=== PATIENT | female | born 1995 | race Caucasian/White ===

== ENCOUNTER 2017-01-10 16:32 | Emergency (ER) | payer OTHER ==
[2017-01-10 17:05] VITALS: BMI 21.0
[2017-01-10] MEDS ORDERED: METOCLOPRAMIDE HCL INJECTION 10 MG/2 ML VIAL IVPB ONE (17:06)
--- NOTE | 2017-01-10 17:08 | PDOC ---
Rapid Medical Evaluation Chief Complaint: Nausea/Vomiting Time Seen by Provider: 01/10/17 17:03 Medical Evaluation: Allergies Allergy/AdvReac Type Severity Reaction Status Date / Time No Known Allergies Allergy Verified 01/10/17 17:02 Vital Signs Temp Pulse Resp BP Pulse Ox 98.1 F 124 H 16 118/74 100 01/10/17 17:03 01/10/17 17:03 01/10/17 17:03 01/10/17 17:03 01/10/17 17:03 01/10/17 17:07 I have performed a brief in-person evaluation of this patient. The patient presents with a chief complaint of: ~7 weeks w/ hyperemesis x 1 week. Also reports lower abd pain, no vag bleed or dysurai. No care as of yet Pertinent physical exam findings: Tachycardiac, otherwise stable w/ no sig ttp to abd on exam I have ordered the following:cbc/chem/beta/ua/US/IVF/reglan The patient will proceed to the ED for further evaluation.
[2017-01-10] MEDS ORDERED: DEXTROSE 5%-0.45% SALINE 1,000 ML IV SCH (17:15)
[2017-01-10 17:26] LABS: URINE APPEARANCE SLCLOUDY; URINE BILIRUBIN NEGATIVE (NEGATIVE); URINE BLOOD NEGATIVE (NEGATIVE); URINE COLOR YELLOW; URINE GLUCOSE (UA) NEGATIVE (NEGATIVE); URINE KETONE 2+ (NEGATIVE); URINE NITRITE POSITIVE (NEGATIVE); URINE UROBILINOGEN 2.0 E.U/dl E.U./dl (0.2-1.0)
[2017-01-10 17:26] LABS: BASOPHIL 0.4 % (0-2.0); EOSINOPHIL 0.1 % (0-4.5); MCH 24.7 pg (25.7-33.7); MCHC 32.1 g/dl (32.0-36.0); MEAN PLT VOLUME 10.4 fl (7.5-11.1); NEUTROPHILS 66.8 % (42.8-82.8); PLATELET COUNT 269 K/MM3 (134-434); RDW 19.7 % (11.6-15.6); WHITE BLOOD COUNT 7.6 K/mm3 (4.0-10.0)
[2017-01-10 17:55] LABS: URINE LEUK ESTERASE 2+ (NEGATIVE); URINE PROTEIN 2+ (NEGATIVE)
[2017-01-10 18:09] LABS: URINE BACTERIA FEW /hpf (NONE SEEN); URINE MUCUS MANY; URINE RBC 8 /hpf (0-3); URINE WBC 191 /hpf (3-5)
[2017-01-10 18:17] LABS: ALBUMIN 4.3 g/dl (3.4-5.0); ALK PHOS 90 U/L (45-117); ANION GAP 13 (8-16); BILIRUBIN,TOTAL 0.6 mg/dL (0.2-1.0); CALCIUM 9.8 mg/dL (8.5-10.1); CO2 23 mmol/L (21-32); CREATININE 0.5 mg/dL (0.55-1.02); GLUCOSE,RANDOM 79 mg/dL (74-106); SGOT/AST 17 U/L (15-37); SGPT/ALT 18 U/L (12-78); TOT PROT 8.8 g/dl (6.4-8.2)
[2017-01-10] MEDS ORDERED: CEFAZOLIN 1 GM in DEXTROSE 5%-WATER - 50 ML IVPB ONE (19:47)
--- NOTE | 2017-01-10 19:50 | PDOC ---
History of Present Illness <CatarinoNelatatyana Bauer - Last Filed: 01/10/17 23:00> - History of Present Illness Initial Comments: 01/11/17 00:19 Patient is a 21 year old female (7 weeks) with no significant medical hx who is presenting to the ED with four days of hyperemesis. The patient complains of four days of nausea, vomiting and epigastric pain. Today she had four episodes of vomiting and states that she vomited everything she ate today. The patient is concerned because she never had morning sickness with past pregnancies. Denies any vaginal bleeding, vaginal discharge, fever, chills, diarrhea, or urinary complaints. <Delfina Ellison - Last Filed: 01/11/17 00:24> - General Chief Complaint: Nausea/Vomiting Stated Complaint: 7 WKS PREG NAUSEA/VOMITING Time Seen by Provider: 01/10/17 17:03 Past History - Past Medical History Asthma: No Cancer: No Cardiac Disorders: No Diabetes: No HTN: No Seizures: No Thyroid Disease: No Other medical history: NONE - Reproductive History (#): 3 Para: 2 Therapeutic (s) & number: No Spontaneous : 0 - Psycho/Social/Smoking Cessation Hx Anxiety: No Suicidal Ideation: No Smoking History: Never smoked Have you smoked in the past 12 months: No Information on smoking cessation initiated: No Hx Alcohol Use: No Drug/Substance Use Hx: No Substance Use Type: None Hx Substance Use Treatment: No <Nela Toribio - Last Filed: 01/10/17 23:00> <Delfina Ellison - Last Filed: 01/11/17 00:24> - Past Medical History Allergies/Adverse Reactions: Allergies Allergy/AdvReac Type Severity Reaction Status Date / Time No Known Allergies Allergy Verified 01/10/17 20:09 Home Medications: Ambulatory Orders Nitrofurantoin Monohyd/M-Cryst [Macrobid -] 100 mg PO BID #14 capsule 01/10/17 Ondansetron [Zofran Odt -] 4 mg SL BID PRN #14 od.tablet 01/10/17 Review of Systems - Review of Systems Comments:: 01/11/17 00:22 CONSTITUTIONAL: Absent: fever, chills, diaphoresis, generalized weakness, malaise, loss of appetite HEENT: Absent: rhinorrhea, nasal congestion, throat pain, throat swelling, difficulty swallowing, mouth swelling, ear pain, eye pain, visual changes CARDIOVASCULAR: Absent: chest pain, syncope, palpitations, irregular heart rate, lightheadedness , peripheral edema RESPIRATORY: Absent: cough, shortness of breath, dyspnea with exertion, orthopnea, wheezing, stridor, hemoptysis GASTROINTESTINAL: Present: epigastric pain, nausea, vomiting Absent: abdominal distension, diarrhea, constipation, melena, hematochezia GENITOURINARY: Absent: dysuria, frequency, urgency, hesitancy, hematuria, flank pain, genital pain MUSCULOSKELETAL: Absent: myalgia, arthralgia, joint swelling SKIN: Absent: rash, itching, pallor HEMATOLOGIC/IMMUNOLOGIC: Absent: easy bleeding, easy bruising, lymphadenopathy, frequent infections ENDOCRINE: Absent: unexplained weight gain, unexplained weight loss, heat intolerance, cold intolerance NEUROLOGIC: Absent: headache, focal weakness or paresthesia, dizziness, unsteady gait, seizure, mental status changes, bladder or bowel incontinence. PSYCHIATRIC: Absent: anxiety, depression, suicidal or homicidal ideation, hallucinations <Delfina Ellison - Last Filed: 01/11/17 00:24> *Physical Exam - Vital Signs Last Vital Signs Temp Pulse Resp BP Pulse Ox 98.1 F 124 H 16 118/74 100 01/10/17 17:03 01/10/17 17:03 01/10/17 17:03 01/10/17 17:03 01/10/17 17:03 <Nela Toribio - Last Filed: 01/10/17 23:00> - Vital Signs Last Vital Signs Temp Pulse Resp BP Pulse Ox 98.1 F 124 H 16 118/74 100 01/10/17 17:03 01/10/17 17:03 01/10/17 17:03 01/10/17 17:03 01/10/17 19:25 - Physical Exam Comments: 01/11/17 00:23 GENERAL: Well developed, well nourished. Awake and alert. No acute distress. HEENT: Normocephalic, atraumatic. PERRLA, EOMI. No conjunctival pallor. Sclera are non- icteric. Moist mucous membranes. Oropharynx is clear. NECK: Supple. Full ROM. No JVD. Carotid pulses 2+ and symmetric, without bruits. No thyromegaly. No lymphadenopathy. CARDIOVASCULAR: Regular rate and rhythm. No murmurs, rubs, or gallops. Distal pulses are 2+ and symmetric. PULMONARY: No evidence of respiratory distress. Lungs clear to auscultation bilaterally. No wheezing, rales or rhonchi. ABDOMINAL: Soft. Epigastric discomfort. Non-distended. No rebound or guarding. No organomegaly. Normoactive bowel sounds. MUSCULOSKELETAL: Normal range of motion at all joints. No bony deformities or tenderness. No CVA tenderness. EXTREMITIES: No cyanosis. No clubbing. No edema. No calf tenderness. SKIN: Warm and dry. Normal capillary refill. No rashes. No jaundice. NEUROLOGICAL: Alert, awake, appropriate. Cranial nerves 2-12 intact. Normal speech. Gait is normal without ataxia. PSYCHIATRIC: Cooperative. Good eye contact. Appropriate mood and affect. <Delfina Ellison - Last Filed: 01/11/17 00:24> ED Treatment Course - LABORATORY CBC & Chemistry Diagram: 01/10/17 17:15 01/10/17 17:15 - ADDITIONAL ORDERS Additional order review: Laboratory Results 01/10/17 01/10/17 01/10/17 17:15 17:15 17:04 Sodium 137 Potassium 3.4 L Chloride 101 Carbon Dioxide 23 Anion Gap 13 BUN 8 D Creatinine 0.5 L Creat Clearance w eGFR > 60 Random Glucose 79 D Calcium 9.8 Total Bilirubin 0.6 D AST 17 D ALT 18 D Alkaline Phosphatase 90 Total Protein 8.8 H Albumin 4.3 D Beta HCG, Quant 34460.4 Urine Color Yellow Urine Appearance Slcloudy Urine pH 6.0 Urine Protein 2+ H Urine Glucose (UA) Negative Urine Ketones 2+ H Urine Blood Negative Urine Nitrite Positive Urine Bilirubin Negative Urine Urobilinogen 2.0 e.u/dl H Ur Leukocyte Esterase 2+ H Urine RBC 8 Urine WBC 191 Ur Epithelial Cells Rare Urine Bacteria Few Urine Mucus Many 01/10/17 17:15 RBC 5.11 D MCV 77.0 L MCHC 32.1 RDW 19.7 H MPV 10.4 D Neutrophils % 66.8 Lymphocytes % 24.8 Monocytes % 7.9 Eosinophils % 0.1 D Basophils % 0.4 <Nela Toribio - Last Filed: 01/10/17 23:00> - LABORATORY CBC & Chemistry Diagram: 01/10/17 17:15 01/10/17 17:15 - ADDITIONAL ORDERS Additional order review: Laboratory Results 01/10/17 01/10/17 01/10/17 17:15 17:15 17:15 Sodium 137 Potassium 3.4 L Chloride 101 Carbon Dioxide 23 Anion Gap 13 BUN 8 D Creatinine 0.5 L Creat Clearance w eGFR > 60 Random Glucose 79 D Calcium 9.8 Total Bilirubin 0.6 D AST 17 D ALT 18 D Alkaline Phosphatase 90 Total Protein 8.8 H Albumin 4.3 D Beta HCG, Quant 37408.4 Urine Color Urine Appearance Urine pH Ur Specific Theodore Urine Protein Urine Glucose (UA) Urine Ketones Urine Blood Urine Nitrite Urine Bilirubin Urine Urobilinogen Ur Leukocyte Esterase Urine RBC Urine WBC Ur Epithelial Cells Urine Bacteria Urine Mucus Blood Type B POSITIVE Antibody Screen Negative 01/10/17 17:04 Sodium Potassium Chloride Carbon Dioxide Anion Gap BUN Creatinine Creat Clearance w eGFR Random Glucose Calcium Total Bilirubin AST ALT Alkaline Phosphatase Total Protein Albumin Beta HCG, Quant Urine Color Yellow Urine Appearance Slcloudy Urine pH 6.0 Ur Specific Theodore >= 1.030 H Urine Protein 2+ H Urine Glucose (UA) Negative Urine Ketones 2+ H Urine Blood Negative Urine Nitrite Positive Urine Bilirubin Negative Urine Urobilinogen 2.0 e.u/dl H Ur Leukocyte Esterase 2+ H Urine RBC 8 Urine WBC 191 Ur Epithelial Cells Rare Urine Bacteria Few Urine Mucus Many Blood Type Antibody Screen 01/10/17 17:15 RBC 5.11 D MCV 77.0 L MCHC 32.1 RDW 19.7 H MPV 10.4 D Neutrophils % 66.8 Lymphocytes % 24.8 Monocytes % 7.9 Eosinophils % 0.1 D Basophils % 0.4 - RADIOLOGY Radiograph Interpretation: 01/10/17 22:33 Transvaginal US Impression: Single live intrauterine with estimated gestational age of 6 weeks 5 days. Likely hemorrhagic corpus luteum cyst in the right ovary measuring 2.5 x 1.9 cm. Follow-up is needed. Reported By: Nina Sewell MD - Medications Given in the ED: ED Medications Discontinued Medications Generic Name Dose Route Start Last Admin Trade Name Freq PRN Reason Stop Dose Admin Cefazolin Sodium 1 gm/ 50 mls @ 100 mls/hr 01/10/17 19:47 01/10/17 20:22 Dextrose IVPB 01/10/17 20:16 100 mls/hr ONCE ONE Administration Metoclopramide HCl 10 mg 01/10/17 17:06 01/10/17 20:08 Reglan Injection - IVPB 01/10/17 17:07 10 mg ONCE ONE Administration <Delfina Ellison - Last Filed: 01/11/17 00:24> *DC/Admit/Observation/Transfer <Nela Toribio - Last Filed: 01/10/17 23:00> - Attestations Scribe Attestion: 01/11/17 00:23 Documentation prepared by Delfina Ellison, acting as medical staff specialist for Nela Toribio MD. <Delfina Ellison - Last Filed: 01/11/17 00:24> Diagnosis at time of Disposition: Hyperemesis gravidarum Urinary tract infection Qualifiers: Urinary tract infection type: site unspecified Hematuria presence: without hematuria Qualified Code(s): N39.0 - Urinary tract infection, site not specified - Discharge Dispostion Disposition: HOME Condition at time of disposition: Stable - Prescriptions Prescriptions: Nitrofurantoin Monohyd/M-Cryst [Macrobid -] 100 mg PO BID #14 capsule Ondansetron [Zofran Odt -] 4 mg SL BID PRN #14 od.tablet PRN Reason: Nausea And/Or Vomiting - Referrals Referrals: Yumi Llanos MD [Primary Care Provider] - - Patient Instructions Printed Discharge Instructions: DI for Hyperemesis Gravidarum, DI for Urinary Tract Infection (UTI) Additional Instructions: -please take antibiotics for your UTI -followup with your insole filler
[2017-01-10] MEDS ORDERED: CEFAZOLIN (PRE-DOCKED) 50 ML IVPB ONE (19:54)
[2017-01-10] MEDS ORDERED: METOCLOPRAMIDE HCL INJECTION 10 MG/2 ML VIAL ONE (19:54)
[2017-01-10 23:41] VITALS: BP 120/76; PULSE 90; TEMP 98
== END 2017-01-10 23:41 | disposition home or self-care (01) ==
LOC: JER 16:32
PROC: 3E0337Z Introduction of Electrolytic and Water Balance Substance into Peripheral Vein, Percutaneous Approach (ICD-10-PCS; principal; 2017-01-10)
PROC: 3E03329 Introduction of Other Anti-infective into Peripheral Vein, Percutaneous Approach (ICD-10-PCS; 2017-01-10)
PROC: 3E033GC Introduction of Other Therapeutic Substance into Peripheral Vein, Percutaneous Approach (ICD-10-PCS; 2017-01-10)
DX: O21.0 Mild hyperemesis gravidarum (principal); O23.31 Infections of other parts of urinary tract in pregnancy, first trimester; O34.81 Maternal care for other abnormalities of pelvic organs, first trimester; N83.11 Corpus luteum cyst of right ovary; Z3A.01 Less than 8 weeks gestation of pregnancy
CPT/HCPCS: 36415; 76817-TC; 80053; 81003; 81015; 84702; 85025; 86850; 86900; 86901; 96361; 96365; 96375; 99282-25

== ENCOUNTER 2017-03-24 15:54 | Emergency (ER) | payer OTHER ==
[2017-03-24 16:00] VITALS: BMI 21.0
--- NOTE | 2017-03-24 16:23 | PDOC ---
History of Present Illness - General Chief Complaint: Pain Stated Complaint: PALPITATIONS, HEADACHE, VOMITING Time Seen by Provider: 03/24/17 16:11 - History of Present Illness Initial Comments: 03/24/17 17:40 Patient is a 21 y.o. female female who presents to our ED c/o chest pain, headache and anxiety. Patient notes she has had substernal "burning" and "pressure" like chest pain that has been ongoing for 2-3 days. Patient states the chest pain is constant, 10/10 and exacerbated by laying down. Patient also notes an associated headache, mostly frontal, that started at the same time. Patient does report an intermittent febrile episode yesterday (03/23) for which she took Tylenol however patient states she vomited immediately after taking the Tylenol and has been not tolerating PO intake since that time. Patient denies any shortness of breath, diaphoresis, lightheadness, recent travel/ prolonged sitting or calf pain. Past History - Past Medical History Allergies/Adverse Reactions: Allergies Allergy/AdvReac Type Severity Reaction Status Date / Time No Known Allergies Allergy Verified 03/24/17 16:00 Home Medications: Ambulatory Orders Cephalexin Monohydrate [Keflex -] 500 mg PO Q6H #28 capsule 03/24/17 Asthma: No Cancer: No Cardiac Disorders: No Diabetes: No HTN: No Seizures: No Thyroid Disease: No Other medical history: migrane - Reproductive History (#): 3 Para: 2 Therapeutic (s) & number: No Spontaneous : 0 - Psycho/Social/Smoking Cessation Hx Anxiety: No Suicidal Ideation: No Smoking History: Never smoked Have you smoked in the past 12 months: No Information on smoking cessation initiated: No Hx Alcohol Use: No Drug/Substance Use Hx: No Substance Use Type: None Hx Substance Use Treatment: No Review of Systems - Review of Systems Constitutional: Yes: Fever Cardiac (ROS): Yes: Chest Pain, Palpitations, Chest Tightness ABD/GI: Yes: Vomiting Neurological: Yes: Headache Psychiatric: Yes: Anxiety *Physical Exam - Vital Signs Last Vital Signs Temp Pulse Resp BP Pulse Ox 98.2 F 152 H 19 114/68 100 03/24/17 15:58 03/24/17 15:58 03/24/17 15:58 03/24/17 15:58 03/24/17 15:58 - Physical Exam General Appearance: Yes: Nourished, Appropriately Dressed HEENT: positive: EOMI, PAUL Neck: positive: Trachea midline, Supple Respiratory/Chest: positive: Lungs Clear, Normal Breath Sounds Cardiovascular: positive: Regular Rhythm, S1, S2, Tachycardia Gastrointestinal/Abdominal: positive: Soft Extremity: positive: Delayed Capillary Refill Integumentary: positive: Normal Color, Dry, Warm Neurologic: positive: manager care II-XII NML intact, Fully Oriented, Alert ED Treatment Course - LABORATORY CBC & Chemistry Diagram: 03/24/17 16:30 03/24/17 16:00 Medical Decision Making - Medical Decision Making Patient is a 21 y.o. female at a self-reported 15 weeks gestation who presents to our ED today c/o chest pain and associated headache, vomiting and intermittent fevers. Initial differential diagnosis includes pericarditis vs. ACS vs. GERD vs. dehydration. PLAN: 1. EKG 2. Troponin, CBC, BMP 3. I L IV NS 4. IV Tylenol Patient's EKG showed Sinus Tachycardia with no diffuse ST elevation/WI depression making pericarditis less likely. Troponin (-) x1. Patient's tachycardia improved with 1 L IV NS x2 to low 100's --> 90's. UA shows (+) leukocyte esterase and (+) nitrite. As per EMR patient evaluated in 12/2016 for UTI treated with Nitrofurantoin. Patient given Cephalexin in ED and outpatient prescription for 500 mg BID x 7 days. Beside U/S showed IUP with FHR @ 164 BPM, formal transabdominal U/S pending at time to signout to Dr. Miguel. *DC/Admit/Observation/Transfer Diagnosis at time of Disposition: Hyperemesis gravidarum, Reflux esophagitis - Discharge Dispostion Disposition: HOME Condition at time of disposition: Improved - Prescriptions Prescriptions: Cephalexin Monohydrate [Keflex -] 500 mg PO Q6H #28 capsule - Patient Instructions Printed Discharge Instructions: DI for Hyperemesis Gravidarum, DI for -- Discomforts and Remedies Additional Instructions: Please return to ED if you have vaginal bleeding, severe abdominal pain, worsening chest pain, shortness of breath, or worsening of current symptoms. Please follow up with your [facility] physician in the next 2-4 days. Continue antibiotic as prescribed.
[2017-03-24] MEDS ORDERED: SODIUM CHLORIDE 0.9% 1000 ML INFUS.BAG IV ONE (16:26)
[2017-03-24 16:36] LABS: BASOPHIL 0.2 % (0-2.0); MCHC 32.6 g/dl (32.0-36.0); MEAN CELL VOLUME 76.7 fl (80-96); MEAN PLT VOLUME 9.8 fl (7.5-11.1); NEUTROPHILS 88.9 % (42.8-82.8); PLATELET COUNT 277 K/MM3 (134-434); RDW 16.4 % (11.6-15.6); WHITE BLOOD COUNT 19.6 K/mm3 (4.0-10.0)
[2017-03-24] MEDS ORDERED: ACETAMINOPHEN INJECTION 100 ML IVPB ONE (16:37)
[2017-03-24] MEDS ORDERED: ACETAMINOPHEN 1000 MG/100 ML VIAL (NON FORMULARY) IVPB ONE (16:37)
[2017-03-24] MEDS ORDERED: MAG HYDROX/AL HYDROX/SIMETH 355 ML ORAL.SUSP PO ONE (16:57)
[2017-03-24] MEDS ORDERED: ONDANSETRON 4 MG/2 ML VIAL IVPB ONE (16:57)
[2017-03-24] MEDS ORDERED: METOCLOPRAMIDE HCL INJECTION 10 MG/2 ML VIAL IVPB ONE (16:57)
--- NOTE | 2017-03-24 17:00 | PDOC ---
Attending Attestation - Resident Resident Name: Evangelina Ivan - ED Attending Attestation I have performed the following: I have examined & evaluated the patient, The case was reviewed & discussed with the resident, I agree w/resident's findings & plan, Exceptions are as noted - HPI HPI: 03/24/17 17:00 21 F with no PMH, estimated 13 weeks , presents to ER with N/V and chest pain. Pt states that she began to feel ill 2 days ago, with a migraine headache. She states that she began to feel extremely nauseous and vomited several times today. She denies abdominal pain. Endorses subjective fevers. Pt also complains of midsternal burning chest pain. Denies SOB. Denies leg swelling. - Physicial Exam PE: 03/24/17 17:13 "GENERAL: Awake, alert, and fully oriented, in no acute distress HEAD: No signs of trauma EYES: PERRLA, EOMI, sclera anicteric, conjunctiva clear ENT: Auricles normal inspection, hearing grossly normal, nares patent, oropharynx clear without exudates. Moist mucosa NECK: Normal ROM, supple, no lymphadenopathy, JVD, or masses LUNGS: Breath sounds equal, clear to auscultation bilaterally. No wheezes, and no crackles HEART: Regular rate and rhythm, normal S1 and S2, no murmurs, rubs or gallops ABDOMEN: Soft, gravid, nontender, normoactive bowel sounds. No guarding, no rebound. No masses EXTREMITIES: Normal range of motion, no edema. No clubbing or cyanosis. No cords, erythema, or tenderness NEUROLOGICAL: Cranial nerves II through XII grossly intact. Normal speech, normal gait SKIN: Warm, Dry, normal turgor, no rashes or lesions noted. " - Medical Decision Making 03/24/17 17:33 21 F @ approx 13 weeks presents with N+V and chest pain. Likely hyperemesis gravidarum. Pt with midsternal burning, likely reflux esophagitis from vomiting. EKG with no ischemic changes, no signs of pericarditis. - Labs, trop - IVF, reglan, tylenol - OB US - Reassess 03/24/17 18:07 Pt reassessed s/p 2L crystalloid, GI cocktail, tylenol. Reports that her pain has subsided significantly. HR improved to 100s. Heart Score/ECG Review - History History: Slightly suspicious - Electrocardiogram EKG: Normal - Age Age: </= 45 - Risk Factors Based on the list above the patient has:: No risk factors known - ECG Impressions Comment:: 03/24/17 17:13 Sinus tachycardia rate 147, no ANTONIO/STDs, no TWIs, intervals wnl
[2017-03-24 17:05] LABS: ALBUMIN 2.7 g/dl (3.4-5.0); ANION GAP 13 (8-16); BILIRUBIN,TOTAL 0.3 mg/dL (0.2-1.0); CALCIUM 9.7 mg/dL (8.5-10.1); CO2 22 mmol/L (21-32); CREATININE 0.4 mg/dL (0.55-1.02); GLUCOSE,RANDOM 131 mg/dL (74-106); SGOT/AST 14 U/L (15-37); SGPT/ALT 11 U/L (12-78)
[2017-03-24 17:06] LABS: CPK 26 IU/L (26-192)
[2017-03-24 17:07] LABS: ALK PHOS 109 U/L (45-117); TOT PROT 7.5 g/dl (6.4-8.2)
[2017-03-24 17:07] LABS: TROPONIN I < 0.02 ng/ml (0.00-0.05)
[2017-03-24] MEDS ORDERED: ONDANSETRON 4 MG/2 ML VIAL ONE (17:24)
[2017-03-24] MEDS ORDERED: MAG HYDROX/AL HYDROX/SIMETH 30 ML UNIT-DOSE CUP ONE (17:24)
[2017-03-24] MEDS ORDERED: METOCLOPRAMIDE HCL INJECTION 10 MG/2 ML VIAL ONE (17:24)
[2017-03-24] MEDS ORDERED: DEXTROSE 5%-NORMAL SALINE 1,000 ML IV ONE (17:32)
[2017-03-24 18:03] VITALS: TEMP 98.5
[2017-03-24 18:34] LABS: URINE APPEARANCE CLOUDY; URINE BILIRUBIN NEGATIVE (NEGATIVE); URINE BLOOD 1+ (NEGATIVE); URINE COLOR AMBER; URINE GLUCOSE (UA) 3+ (NEGATIVE); URINE KETONE 2+ (NEGATIVE); URINE LEUK ESTERASE 3+ (NEGATIVE); URINE NITRITE NEGATIVE (NEGATIVE); URINE PROTEIN 1+ (NEGATIVE); URINE UROBILINOGEN NEGATIVE mg/dL (0.2-1.0)
[2017-03-24 18:38] LABS: URINE BACTERIA RARE /hpf (NONE SEEN); URINE MUCUS MODERATE; URINE RBC 29 /hpf (0-3); URINE WBC 1369 /hpf (3-5); YEAST FEW
[2017-03-24] MEDS ORDERED: SODIUM CHLORIDE 1,000 ML IV STA (18:52)
[2017-03-24] MEDS ORDERED: CEPHALEXIN MONOHYDRATE 500 MG CAPSULE (UD) PO ONE (18:53)
[2017-03-24] MEDS ORDERED: CEPHALEXIN MONOHYDRATE 250 MG CAPSULE (FP) ONE (19:05)
--- NOTE | 2017-03-24 19:34 | PDOC ---
*Physical Exam - Vital Signs Last Vital Signs Temp Pulse Resp BP Pulse Ox 98.5 F 100 H 18 99/62 97 03/24/17 17:40 03/24/17 18:29 03/24/17 18:29 03/24/17 18:29 03/24/17 18:29 - Physical Exam Comments: 03/24/17 19:34 GENERAL: Awake, alert, and fully oriented, in no acute distress HEAD: No signs of trauma, normocephalic, atraumatic EYES: PERRLA, EOMI, sclera anicteric, conjunctiva clear ENT: Auricles normal inspection, hearing grossly normal, nares patent, oropharynx clear without exudates. Moist mucosa NECK: Normal ROM, supple, no lymphadenopathy, JVD, or masses LUNGS: No distress, speaks full sentences, clear to auscultation bilaterally HEART: Regular rate and rhythm, normal S1 and S2, no murmurs, rubs or gallops, peripheral pulses normal and equal bilaterally. ABDOMEN: Soft, nontender, normoactive bowel sounds. No guarding, no rebound. No masses SKIN: Warm, Dry, normal turgor, no rashes or lesions noted. ED Treatment Course - LABORATORY CBC & Chemistry Diagram: 03/24/17 16:30 03/24/17 16:00 - ADDITIONAL ORDERS Additional order review: Laboratory Results 03/24/17 03/24/17 03/24/17 18:29 18:25 16:30 Sodium Cancelled Potassium Cancelled Chloride Cancelled Carbon Dioxide Cancelled Anion Gap Cancelled BUN Cancelled Creatinine Cancelled Creat Clearance w eGFR Random Glucose Cancelled Calcium Cancelled Total Bilirubin AST ALT Alkaline Phosphatase Creatine Kinase 26 Troponin I < 0.02 Total Protein Albumin Lipase Urine Color Tegan Urine Appearance Cloudy Urine pH 6.0 Urine Protein 1+ H Urine Glucose (UA) 3+ H Urine Ketones 2+ H Urine Blood 1+ H Urine Nitrite Negative Urine Bilirubin Negative Urine Urobilinogen Negative Ur Leukocyte Esterase 3+ H Urine RBC 29 Urine WBC 1369 Ur Epithelial Cells Rare Urine Bacteria Rare Urine Mucus Moderate Urine Yeast Few Urine HCG, Qual Positive 03/24/17 16:00 Sodium 134 L Potassium 3.6 Chloride 99 Carbon Dioxide 22 Anion Gap 13 BUN 6 L D Creatinine 0.4 L Creat Clearance w eGFR > 60 Random Glucose 131 H D Calcium 9.7 Total Bilirubin 0.3 D AST 14 L ALT 11 L D Alkaline Phosphatase 109 D Creatine Kinase Troponin I Total Protein 7.5 Albumin 2.7 L D Lipase 123 Urine Color Urine Appearance Urine pH Urine Protein Urine Glucose (UA) Urine Ketones Urine Blood Urine Nitrite Urine Bilirubin Urine Urobilinogen Ur Leukocyte Esterase Urine RBC Urine WBC Ur Epithelial Cells Urine Bacteria Urine Mucus Urine Yeast Urine HCG, Qual 03/24/17 16:30 RBC 4.16 MCV 76.7 L MCHC 32.6 RDW 16.4 H D MPV 9.8 Neutrophils % 88.9 H D Lymphocytes % 6.0 L D Monocytes % 4.9 Eosinophils % 0.0 D Basophils % 0.2 - Medications Given in the ED: ED Medications Discontinued Medications Generic Name Dose Route Start Last Admin Trade Name Freq PRN Reason Stop Dose Admin Acetaminophen 1,000 mg 03/24/17 16:37 03/24/17 16:46 Ofirmev Injection - IVPB 03/24/17 16:38 1,000 mg ONCE ONE Administration Al Hydroxide/Mg Hydroxide 30 ml 03/24/17 16:57 03/24/17 17:36 Mylanta Suspension - PO 03/24/17 16:58 30 ml ONCE ONE Administration Cephalexin HCl 500 mg 03/24/17 18:53 03/24/17 19:11 Keflex - PO 03/24/17 18:54 500 mg ONCE ONE Administration Dextrose/Sodium Chloride 1,000 mls @ 1,000 mls/hr 03/24/17 17:32 03/24/17 17:36 D5-Ns - IV 03/24/17 18:31 1,000 mls/hr ONCE ONE Administration Metoclopramide HCl 10 mg 03/24/17 16:57 03/24/17 17:36 Reglan Injection - IVPB 03/24/17 16:58 10 mg ONCE ONE Administration Ondansetron HCl 4 mg 03/24/17 16:57 03/24/17 17:36 Zofran Injection IVPB 03/24/17 16:58 4 mg ONCE ONE Administration Sodium Chloride 1,000 ml 03/24/17 16:26 03/24/17 16:32 Normal Saline - IV 03/24/17 16:27 1,000 ml ONCE ONE Administration Medical Decision Making - Medical Decision Making 03/24/17 19:16 21 yo at 10 weeks presents with palpitations and anxiety. Arrived tachycardic HR 170's. Complains of biliary emesis and substernal burning. Denies chest pain, SOB, hemoptysis, calf tenderness/swelling, or any other associated symptoms. No h/o DVT/PE DDx: Hyperemesis gravidarum, reflux esophagitis ED Course: UA: + Nitrites and leuk esterase EKG: Unremarkable Recently on Nitrofuratoin in December for UTI Admin 2 L NS 03/24/17 19:35 WBC: 19.6 03/24/17 20:37 Cephalexin 500 mg 03/24/17 20:43 Transabdominal U/S: No gross pathology. Single viable uterine gestation. Stable discharge *DC/Admit/Observation/Transfer Diagnosis at time of Disposition: Hyperemesis gravidarum, Reflux esophagitis - Discharge Dispostion Disposition: HOME Condition at time of disposition: Improved Admit: No - Prescriptions Prescriptions: Cephalexin Monohydrate [Keflex -] 500 mg PO Q6H #28 capsule - Patient Instructions Printed Discharge Instructions: DI for Hyperemesis Gravidarum, DI for -- Discomforts and Remedies Additional Instructions: Please return to ED if you have vaginal bleeding, severe abdominal pain, worsening chest pain, shortness of breath, or worsening of current symptoms. Please follow up with your [facility] physician in the next 2-4 days. Continue antibiotic as prescribed.
[2017-03-24 20:29] VITALS: BP 92/54; PULSE 92
--- NOTE | 2017-03-24 20:53 | PDOC ---
*Physical Exam - Vital Signs Last Vital Signs Temp Pulse Resp BP Pulse Ox 98.5 F 92 H 18 92/54 98 03/24/17 17:40 03/24/17 20:29 03/24/17 20:29 03/24/17 20:29 03/24/17 20:29 ED Treatment Course - LABORATORY CBC & Chemistry Diagram: 03/24/17 16:30 03/24/17 16:00 - ADDITIONAL ORDERS Additional order review: Laboratory Results 03/24/17 03/24/17 03/24/17 18:29 18:25 16:30 Sodium Cancelled Potassium Cancelled Chloride Cancelled Carbon Dioxide Cancelled Anion Gap Cancelled BUN Cancelled Creatinine Cancelled Creat Clearance w eGFR Random Glucose Cancelled Calcium Cancelled Total Bilirubin AST ALT Alkaline Phosphatase Creatine Kinase 26 Troponin I < 0.02 Total Protein Albumin Lipase Urine Color Tegan Urine Appearance Cloudy Urine pH 6.0 Urine Protein 1+ H Urine Glucose (UA) 3+ H Urine Ketones 2+ H Urine Blood 1+ H Urine Nitrite Negative Urine Bilirubin Negative Urine Urobilinogen Negative Ur Leukocyte Esterase 3+ H Urine RBC 29 Urine WBC 1369 Ur Epithelial Cells Rare Urine Bacteria Rare Urine Mucus Moderate Urine Yeast Few Urine HCG, Qual Positive 03/24/17 16:00 Sodium 134 L Potassium 3.6 Chloride 99 Carbon Dioxide 22 Anion Gap 13 BUN 6 L D Creatinine 0.4 L Creat Clearance w eGFR > 60 Random Glucose 131 H D Calcium 9.7 Total Bilirubin 0.3 D AST 14 L ALT 11 L D Alkaline Phosphatase 109 D Creatine Kinase Troponin I Total Protein 7.5 Albumin 2.7 L D Lipase 123 Urine Color Urine Appearance Urine pH Urine Protein Urine Glucose (UA) Urine Ketones Urine Blood Urine Nitrite Urine Bilirubin Urine Urobilinogen Ur Leukocyte Esterase Urine RBC Urine WBC Ur Epithelial Cells Urine Bacteria Urine Mucus Urine Yeast Urine HCG, Qual 03/24/17 16:30 RBC 4.16 MCV 76.7 L MCHC 32.6 RDW 16.4 H D MPV 9.8 Neutrophils % 88.9 H D Lymphocytes % 6.0 L D Monocytes % 4.9 Eosinophils % 0.0 D Basophils % 0.2 - Medications Given in the ED: ED Medications Discontinued Medications Generic Name Dose Route Start Last Admin Trade Name Freq PRN Reason Stop Dose Admin Acetaminophen 1,000 mg 03/24/17 16:37 03/24/17 16:46 Ofirmev Injection - IVPB 03/24/17 16:38 1,000 mg ONCE ONE Administration Al Hydroxide/Mg Hydroxide 30 ml 03/24/17 16:57 03/24/17 17:36 Mylanta Suspension - PO 03/24/17 16:58 30 ml ONCE ONE Administration Cephalexin HCl 500 mg 03/24/17 18:53 03/24/17 19:11 Keflex - PO 03/24/17 18:54 500 mg ONCE ONE Administration Dextrose/Sodium Chloride 1,000 mls @ 1,000 mls/hr 03/24/17 17:32 03/24/17 17:36 D5-Ns - IV 03/24/17 18:31 1,000 mls/hr ONCE ONE Administration Sodium Chloride 1,000 mls @ 1,000 mls/hr 03/24/17 18:52 03/24/17 19:10 Normal Saline - IV 03/24/17 19:51 1,000 mls/hr ASDIR STA Administration Metoclopramide HCl 10 mg 03/24/17 16:57 03/24/17 17:36 Reglan Injection - IVPB 03/24/17 16:58 10 mg ONCE ONE Administration Ondansetron HCl 4 mg 03/24/17 16:57 03/24/17 17:36 Zofran Injection IVPB 03/24/17 16:58 4 mg ONCE ONE Administration Sodium Chloride 1,000 ml 03/24/17 16:26 03/24/17 16:32 Normal Saline - IV 03/24/17 16:27 1,000 ml ONCE ONE Administration *DC/Admit/Observation/Transfer Diagnosis at time of Disposition: Hyperemesis gravidarum, Reflux esophagitis - Discharge Dispostion Disposition: HOME Condition at time of disposition: Improved Admit: No - Prescriptions Prescriptions: Cephalexin Monohydrate [Keflex -] 500 mg PO Q6H #28 capsule - Referrals - Patient Instructions Printed Discharge Instructions: DI for Hyperemesis Gravidarum, DI for -- Discomforts and Remedies Additional Instructions: Please return to ED if you have vaginal bleeding, severe abdominal pain, worsening chest pain, shortness of breath, or worsening of current symptoms. Please follow up with your [facility] physician in the next 2-4 days. Continue antibiotic as prescribed. - Post Discharge Activity
--- NOTE | 2017-03-26 14:22 | EKG ---
Test Reason : Blood Pressure : / mmHG Vent. Rate : 094 BPM Atrial Rate : 094 BPM P-R Int : 132 ms QRS Dur : 094 ms QT Int : 370 ms P-R-T Axes : 044 059 043 degrees QTc Int : 462 ms NORMAL SINUS RHYTHM RSR'IN V1-V2 WHEN COMPARED WITH ECG OF 24-MAR-2017 16:07, VENT. RATE HAS DECREASED BY [address] NO LONGER DEPRESSED IN ANTERIOR LEADS T WAVE INVERSION NO LONGER EVIDENT IN INFERIOR LEADS NONSPECIFIC T WAVE ABNORMALITY NO LONGER EVIDENT IN LATERAL LEADS APPEARANCE OF RSR' REPEAT EKG IF CLINICALLY INDICATED Confirmed by GENARO PADILLA MD ([id number]) on 03/26/2017 2:22:08 PM Referred By: Confirmed By:GENARO PADILLA MD
--- NOTE | 2017-03-26 14:27 | EKG ---
Test Reason : Blood Pressure : / mmHG Vent. Rate : 149 BPM Atrial Rate : 149 BPM P-R Int : 126 ms QRS Dur : 076 ms QT Int : 268 ms P-R-T Axes : 075 079 059 degrees QTc Int : 422 ms SINUS TACHYCARDIA ABNORMAL ECG WHEN COMPARED WITH ECG OF 19-JUL-2016 12:01, ST NOW DEPRESSED IN ANTERIOR LEADS NONSPECIFIC T WAVE ABNORMALITY NOW EVIDENT IN ANTEROLATERAL LEADS CLINICAL CORRELATION AND FOLLOW UP EKG Confirmed by GENARO PADILLA MD ([id number]) on 03/26/2017 2:26:42 PM Referred By: Confirmed By:GENARO PADILLA MD
== END 2017-03-24 21:09 | disposition home or self-care (01) ==
LOC: JER 15:54
PROC: 3E0337Z Introduction of Electrolytic and Water Balance Substance into Peripheral Vein, Percutaneous Approach (ICD-10-PCS; principal; 2017-03-24)
PROC: 3E033NZ Introduction of Analgesics, Hypnotics, Sedatives into Peripheral Vein, Percutaneous Approach (ICD-10-PCS; 2017-03-24)
PROC: 3E033GC Introduction of Other Therapeutic Substance into Peripheral Vein, Percutaneous Approach (ICD-10-PCS; 2017-03-24)
DX: O26.892 Other specified pregnancy related conditions, second trimester (principal); O21.0 Mild hyperemesis gravidarum; Z3A.15 15 weeks gestation of pregnancy; K21.9 Gastro-esophageal reflux disease without esophagitis
CPT/HCPCS: 36415; 76815-TC; 80053; 81003; 81015; 83690; 84484; 84703; 85025; 87086; 93005; 93010; 99285-25

== ENCOUNTER 2017-06-12 10:32 | Emergency (ER) | payer OTHER ==
[2017-06-12 10:43] VITALS: BP 121/78; PULSE 95; TEMP 98.3; BMI 21.0
[2017-06-12] MEDS ORDERED: FLUORESCEIN NA 1 EA STRIP ONE (11:17)
[2017-06-12] MEDS ORDERED: ERYTHROMYCIN 0.5% OPHTHALMIC OINTMENT 3.5 GM TUBE OS ONE (11:23)
[2017-06-12] MEDS ORDERED: ERYTHROMYCIN 0.5% OPHTHALMIC OINTMENT 3.5 GM TUBE ONE (11:26)
--- NOTE | 2017-06-12 11:27 | PDOC ---
History of Present Illness - General Chief Complaint: Eye Problem Stated Complaint: EYE PROBLEM Time Seen by Provider: 06/12/17 11:08 History Source: Patient Exam Limitations: No Limitations - History of Present Illness Initial Comments: 06/12/17 11:25 CHIEF COMPLAINT:Redness, drainage, pain to the left eye HISTORY OF PRESENT ILLNESS: Patient is an otherwise healthy 22-year-old female, no significant medical history currently on no medication states yesterday she was visiting a family member in the hospital was crying all day today woke up with redness drainage and discomfort to left eye. REVIEW OF SYSTEMS: GENERAL/CONSTITUTIONAL: No fever or chills. No weakness. No weight change. HEAD, EYES, EARS, NOSE AND THROAT: No change in vision. Drainage and pruritus to left eye. No ear pain or discharge. No sore throat. RESPIRATORY: No cough, wheezing, or hemoptysis. SKIN : No rash or easy bruising. NEUROLOGIC: No headache, vertigo, loss of consciousness, or loss of sensation. HEMATOLOGIC/LYMPHATIC: No lymphadenopathy ALLERGIC/IMMUNOLOGIC: No hives or skin allergy. No latex allergy. PHYSICAL EXAM: GENERAL: The patient is awake, alert, and fully oriented, in no acute distress. HEAD: Normal with no signs of trauma. EYES: Pupils equal, round and reactive to light, extraocular movements intact, sclera anicteric, conjunctiva injected on the left, extending to limbus after fluorescein staining, no corneal abrasion noted. ENT: Ears normal, nares patent, oropharynx clear without exudates. Moist mucous membranes. NECK: Normal range of motion, supple without lymphadenopathy, JVD, or masses. LUNGS: Breath sounds equal, clear to auscultation bilaterally. No wheezes, and no crackles. NEUROLOGICAL: Cranial nerves II through XII grossly intact. Normal speech, normal gait. SKIN: No erythema no facial edema. Warm, Dry, normal turgor, no rashes or lesions noted. Past History - Past Medical History Allergies/Adverse Reactions: Allergies Allergy/AdvReac Type Severity Reaction Status Date / Time No Known Allergies Allergy Verified 06/12/17 10:44 Home Medications: Ambulatory Orders Polymyxin B Sulfate/Tmp [Polytrim Opthalmic Solution -] 1 drop OS Q3H #1 drops 06/12/17 Asthma: No Cancer: No Cardiac Disorders: No COPD: No Diabetes: No HTN: No Seizures: No Thyroid Disease: No - Reproductive History (#): 3 Para: 2 Therapeutic (s) & number: No Spontaneous : 0 - Suicide/Smoking/Psychosocial Hx Smoking History: Never smoked Have you smoked in the past 12 months: No Hx Alcohol Use: No Drug/Substance Use Hx: No Substance Use Type: None Hx Substance Use Treatment: No *Physical Exam - Vital Signs Last Vital Signs Temp Pulse Resp BP Pulse Ox 98.3 F 95 H 20 121/78 99 06/12/17 10:40 06/12/17 10:40 06/12/17 10:40 06/12/17 10:40 06/12/17 10:40 Medical Decision Making - Medical Decision Making 06/12/17 11:26 A/P: Patient with conjunctivitis with the medicine, ointment placed in left eye while emergency department for comfort, will DC patient on Polytrim to monitor for any increased redness swelling or signs of infection refrain from rubbing eye If any increased redness or swelling to return to ER otherwise follow-up with ophthalmology *DC/Admit/Observation/Transfer Diagnosis at time of Disposition: Conjunctivitis Qualifiers: Conjunctivitis type: acute Acute conjunctivitis type: unspecified Laterality: left Qualified Code(s): H10.32 - Unspecified acute conjunctivitis, left eye - Discharge Dispostion Disposition: HOME Condition at time of disposition: Good Admit: No - Prescriptions Prescriptions: Polymyxin B Sulfate/Tmp [Polytrim Opthalmic Solution -] 1 drop OS Q3H #1 drops - Referrals Referrals: Yumi León MD [Primary Care Provider] - - Patient Instructions Printed Discharge Instructions: Conjunctivitis Additional Instructions: * Refrain from touching or scratching eye * Please wash hands frequently * Please followup with his primary care doctor in 2 days if symptoms persist * Medication as prescribed * Warm compresses to eye * If increased redness, swelling, pain to the eye please follow up with primary care doctor immediately or return to emergency room - Post Discharge Activity Forms/Work/School Notes: Back to Work
== END 2017-06-12 11:33 | disposition home or self-care (01) ==
LOC: JERFT 10:32 → JER 10:32 → JERFT 11:33
DX: H10.32 Unspecified acute conjunctivitis, left eye (principal)
CPT/HCPCS: 99281-25

== ENCOUNTER 2017-08-24 06:13 | Emergency (ER) | payer OTHER ==
[2017-08-24 06:35] VITALS: BMI 20.1
[2017-08-24] MEDS ORDERED: ACETAMINOPHEN 325 MG TABLET (FP) ONE (06:54)
[2017-08-24] MEDS ORDERED: ACETAMINOPHEN 325 MG TABLET (FP) PO ONE (07:01)
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
[2017-08-24] MEDS ORDERED: traMADol HCL 50 MG TABLET ONE (09:13)
[2017-08-24] MEDS ORDERED: traMADol HCL 50 MG TABLET PO ONE (09:14)
[2017-08-24 09:43] LABS: COCAINE, UR NEGATIVE ng/ml (CUTOFF=300); METHADONE, UR NEGATIVE ng/ml (CUTOFF=300); OPIATES, URI NEGATIVE ng/ml (CUTOFF=300); PHENCYCLIDINE,URINE NEGATIVE ng/ml (CUTOFF=25); URINE AMPHETAMINES NEGATIVE ng/ml (CUTOFF=500); URINE BARBITURATES NEGATIVE ng/ml (CUTOFF=200); URINE BENZODIAZEPINES NEGATIVE ng/ml (CUTOFF=200)
--- NOTE | 2017-08-24 09:43 | PDOC ---
*Physical Exam - Vital Signs Last Vital Signs Temp Pulse Resp BP Pulse Ox 97.9 F 99 H 18 107/69 99 08/24/17 06:34 08/24/17 06:34 08/24/17 06:34 08/24/17 06:34 08/24/17 06:34 - Physical Exam Comments: 08/24/17 09:41 The patient was examined by [JORDANA Ramey] under my direct supervision. I personally evaluated the patient. I concur with the above findings and the plan of care. ED Treatment Course - ADDITIONAL ORDERS Additional order review: Laboratory Results 08/24/17 08/24/17 07:48 07:00 Urine HCG, Qual Negative Negative - Medications Given in the ED: ED Medications Discontinued Medications Generic Name Dose Route Start Last Admin Trade Name Mary PRN Reason Stop Dose Admin Acetaminophen 650 mg 08/24/17 07:01 08/24/17 07:01 Tylenol - PO 08/24/17 07:02 650 mg NOW ONE Administration Tramadol HCl 50 mg 08/24/17 09:14 08/24/17 09:17 Ultram - PO 08/24/17 09:15 50 mg ONCE ONE Administration *DC/Admit/Observation/Transfer - Referrals Referrals: Yumi León MD [Primary Care Provider] - - Patient Instructions - Post Discharge Activity
[2017-08-24] MEDS ORDERED: morphine CARPU-JECT 4 MG/1 ML DISP.SYRIN IM ONE (10:24)
[2017-08-24] MEDS ORDERED: MORPHINE SULFATE 10 MG/1 ML *VIAL ONE (10:29)
[2017-08-24 11:05] VITALS: BP 111/70; PULSE 87; TEMP 97.6
[2017-08-24 11:22] LABS: BASO % 0.6 % (0-2.0); HEMATOCRIT 39.6 % (32.4-45.2); HEMOGLOBIN 12.5 GM/dL (10.7-15.3); LYMPH % 18.3 % (8-40); MCH 25.2 pg (25.7-33.7); MCHC 31.5 g/dl (32.0-36.0); MEAN PLT VOLUME 10.6 fl (7.5-11.1); MONO % 6.5 % (3.8-10.2); NEUT % 74.6 % (42.8-82.8); PLATELET COUNT 168 K/MM3 (134-434); RBC 4.95 M/mm3 (3.60-5.2); RDW 18.5 % (11.6-15.6); WHITE BLOOD COUNT 10.5 K/mm3 (4.0-10.0)
[2017-08-24 11:42] LABS: INR 1.25 (0.82-1.09); PROTHROMBIN TIME (PATIENT) 14.1 SEC (9.98-11.88)
[2017-08-24 11:48] LABS: ALK PHOS 71 U/L (45-117); ANION GAP 9 (8-16); BILIRUBIN,TOTAL 0.4 mg/dL (0.2-1.0); BLOOD UREA NITROGEN 9 mg/dL (7-18); CALCIUM 8.9 mg/dL (8.5-10.1); CHLORIDE 106 mmol/L (98-107); CO2 26 mmol/L (21-32); CREATININE 0.5 mg/dL (0.55-1.02); GLUCOSE,RANDOM 90 mg/dL (74-106); POTASSIUM 3.4 mmol/L (3.5-5.1); SGOT/AST 11 U/L (15-37); SGPT/ALT 14 U/L (12-78); SODIUM 141 mmol/L (136-145); TOT PROT 7.8 g/dl (6.4-8.2)
== END 2017-08-24 11:45 | disposition short-term general hospital (02) ==
LOC: JER 06:13
PROC: 3E033NZ Introduction of Analgesics, Hypnotics, Sedatives into Peripheral Vein, Percutaneous Approach (ICD-10-PCS; principal; 2017-08-24)
DX: S02.32XA Fracture of orbital floor, left side, initial encounter for closed fracture (principal); S02.40DA Maxillary fracture, left side, initial encounter for closed fracture; S02.2XXA Fracture of nasal bones, initial encounter for closed fracture; S02.40FA Zygomatic fracture, left side, initial encounter for closed fracture; Y04.2XXA Assault by strike against or bumped into by another person, initial encounter; Y93.89 Activity, other specified; Y92.038 Other place in apartment as the place of occurrence of the external cause; Y07.59 Other non-family member, perpetrator of maltreatment and neglect
CPT/HCPCS: 36415; 70450-TC; 70486-TC; 80053; 80307; 84703; 85025; 85610; 86850; 86900; 86901; 96372; 99285-25

== ENCOUNTER 2018-04-06 14:02 | Emergency (ER) | payer OTHER ==
[2018-04-06 14:11] VITALS: BP 110/63; PULSE 107; TEMP 99; BMI 21.7
--- NOTE | 2018-04-06 14:46 | PDOC ---
History of Present Illness - General Chief Complaint: Allergic Reaction Stated Complaint: ALLERGIC REACTION Time Seen by Provider: 04/06/18 14:11 History Source: Patient Exam Limitations: No Limitations - History of Present Illness Initial Comments: 04/06/18 14:51 22 y/o female presents to the Emergency dept with rash to face for the past 2 days. Patient states fell sleep in a pillow that had slime on and awoke with red bumps. Patient now with dry crusting to the area and was concerned about infection and so came to the ER. Patient denies fever, chills, itching or pain to the area. Timing/Duration: other (2 days) Severity: mild Associated Symptoms: reports: denies symptoms Past History - Travel Traveled outside of the country in the last 30 days: No - Past Medical History Allergies/Adverse Reactions: Allergies Allergy/AdvReac Type Severity Reaction Status Date / Time No Known Allergies Allergy Verified 04/06/18 14:07 Home Medications: Ambulatory Orders NK [No Known Home Medication] 04/06/18 Asthma: No Cancer: No Cardiac Disorders: No COPD: No Diabetes: No HTN: No Seizures: No Thyroid Disease: No - Reproductive History (#): 3 Para: 2 Therapeutic (s) & number: No Spontaneous : 0 - Suicide/Smoking/Psychosocial Hx Smoking History: Never smoked Have you smoked in the past 12 months: No Hx Alcohol Use: No Drug/Substance Use Hx: No Substance Use Type: None Hx Substance Use Treatment: No Patient Lives Alone: No Lives with/in: spouse/SO Review of Systems - Review of Systems Able to Perform ROS?: No Constitutional: No: Symptoms Reported HEENTM: No: Symptoms Reported Musculoskeletal: No: Symptoms Reported Integumentary: Yes: Rash Neurological: No: Symptoms reported Endocrine: No: Symptoms Reported Hematologic/Lymphatic: No: Symptoms Reported *Physical Exam - Vital Signs Last Vital Signs Temp Pulse Resp BP Pulse Ox 99.0 F 107 H 18 110/63 100 04/06/18 14:08 04/06/18 14:08 04/06/18 14:08 04/06/18 14:08 04/06/18 14:08 - Physical Exam General Appearance: Yes: Nourished, Appropriately Dressed. No: Apparent Distress Neck: positive: Normal Thyroid, Supple. negative: Decreased range of motion Respiratory/Chest: positive: Lungs Clear, Normal Breath Sounds. negative: Respiratory Distress, Accessory Muscle Use Cardiovascular: positive: Regular Rhythm, Regular Rate. negative: Murmur Integumentary: positive: Other (noted dry abrasive rash to upper and lower lip) Neurologic: positive: Motor Strength 5/5 (ambulatory) Medical Decision Making - Medical Decision Making 04/06/18 14:49 Pt with rash to face likely due to prolonged exposure to slime 2 days ago after falling asleep on it. Pt given instructions on care and how to apply bacitracin *DC/Admit/Observation/Transfer Diagnosis at time of Disposition: Rash - Discharge Dispostion Disposition: HOME Condition at time of disposition: Good - Referrals - Patient Instructions Printed Discharge Instructions: DI for Contact Dermatitis Additional Instructions: Please use bacitracin twice a day after washing with soap and water allowing area to air dry for about 30 minutes prior to application. - Post Discharge Activity Forms/Work/School Notes: Back to Work
== END 2018-04-06 14:59 | disposition home or self-care (01) ==
LOC: JERFT 14:02
DX: L24.89 Irritant contact dermatitis due to other agents (principal)
CPT/HCPCS: 99281-25

== ENCOUNTER 2018-05-01 18:58 | Emergency (ER) | payer OTHER ==
[2018-05-01 19:03] VITALS: TEMP 98.6; BMI 20.7
[2018-05-01] MEDS ORDERED: ONDANSETRON 4 MG/2 ML VIAL IVPUSH STA (19:48)
[2018-05-01] MEDS ORDERED: SODIUM CHLORIDE 1,000 ML IV STA (19:48)
--- NOTE | 2018-05-01 19:48 | PDOC ---
History of Present Illness - General History Source: Patient Exam Limitations: No Limitations - History of Present Illness Initial Comments: 05/01/18 20:00 The patient is a 23-year-old female,, with no past medical history, who presents to the ED with worsening abdominal pain, nausea and vomiting. No blood noted in the emesis. Patients last menstrual period was on 03/13/18. She reports that she has not been able to keep any solids or liquids down. The patient denies any fever, chills, cough, diarrhea, or constipation. She denies any vaginal bleeding or vaginal discharge. She denies any frequency, urgency, hesitancy, dysuria, or hematuria. Allergies: NKA Surgical History: None reported. Social History: None reported. <Danna Loredo - Last Filed: 05/01/18 20:00> <Nela Toribio - Last Filed: 05/01/18 22:30> - General Chief Complaint: Pain Stated Complaint: ABD PAIN 05/03 PAIN Time Seen by Provider: 05/01/18 19:40 Past History <Danna Loredo - Last Filed: 05/01/18 20:00> - Past Medical History Asthma: No Cancer: No Cardiac Disorders: No COPD: No CHF: No Diabetes: No HTN: No Seizures: No Thyroid Disease: No - Reproductive History Is Patient Now?: Yes (#): 3 Para: 2 Therapeutic (s) & number: No Spontaneous : 0 - Suicide/Smoking/Psychosocial Hx Smoking History: Never smoked Have you smoked in the past 12 months: No Information on smoking cessation initiated: No Hx Alcohol Use: No Drug/Substance Use Hx: No Substance Use Type: None Hx Substance Use Treatment: No <Nela Toribio - Last Filed: 05/01/18 22:30> - Past Medical History Allergies/Adverse Reactions: Allergies Allergy/AdvReac Type Severity Reaction Status Date / Time No Known Allergies Allergy Verified 05/01/18 19:00 Home Medications: Ambulatory Orders Cephalexin Monohydrate [Keflex -] 500 mg PO BID #20 capsule 05/01/18 Ondansetron [Zofran Odt -] 4 mg SL TID PRN #21 od.tablet 05/01/18 Review of Systems - Review of Systems Able to Perform ROS?: Yes Comments:: 05/01/18 20:00 CONSTITUTIONAL: Present: (+)Loss of appetite Absent: fever, chills, diaphoresis, generalized weakness, malaise HEENT: Absent: rhinorrhea, nasal congestion, throat pain, throat swelling, difficulty swallowing, mouth swelling, ear pain, eye pain, visual Changes CARDIOVASCULAR: Absent: chest pain, syncope, palpitations, irregular heart rate, lightheadedness , peripheral edema RESPIRATORY: Absent: cough, shortness of breath, dyspnea with exertion, orthopnea, wheezing, stridor, hemoptysis GASTROINTESTINAL: Present: (+)abdominal pain, nausea, vomiting. Absent: abdominal distension,diarrhea, constipation, melena, hematochezia GENITOURINARY: Absent: dysuria, frequency, urgency, hesitancy, hematuria, flank pain, genital pain MUSCULOSKELETAL: Absent: myalgia, arthralgia, joint swelling SKIN: Absent: rash, itching, pallor HEMATOLOGIC/IMMUNOLOGIC: Absent: easy bleeding, easy bruising, lymphadenopathy, frequent infections ENDOCRINE: Absent: unexplained weight gain, unexplained weight loss, heat intolerance, cold intolerance NEUROLOGIC: Absent: headache, focal weakness or paresthesias, dizziness, unsteady gait, seizure, mental status changes, bladder or bowel incontinence PSYCHIATRIC: Absent: anxiety, depression, suicidal or homicidal ideation, hallucinations. <Danna Loredo - Last Filed: 05/01/18 20:00> *Physical Exam - Vital Signs Last Vital Signs Temp Pulse Resp BP Pulse Ox 98.6 F 100 H 18 102/73 100 05/01/18 19:01 05/01/18 19:01 05/01/18 19:01 05/01/18 19:01 05/01/18 19:01 - Physical Exam Comments: 05/01/18 20:02 GENERAL: Well developed, well nourished. Awake and alert. No acute distress. HEENT: Normocephalic, atraumatic. PERRLA, EOMI. No conjunctival pallor. Sclera are non- icteric. Moist mucous membranes. Oropharynx is clear. NECK: Supple. Full ROM. No JVD. Carotid pulses 2+ and symmetric, without bruits. No thyromegaly. No lymphadenopathy. CARDIOVASCULAR: Regular rate and rhythm. No murmurs, rubs, or gallops. Distal pulses are 2+ and symmetric. PULMONARY: No evidence of respiratory distress. Lungs clear to auscultation bilaterally. No wheezing, rales or rhonchi. ABDOMINAL: Soft. Non-tender. Non-distended. No rebound or guarding. No organomegaly. Normoactive bowel sounds. MUSCULOSKELETAL Normal range of motion at all joints. No bony deformities or tenderness. No CVA tenderness. EXTREMITIES: No cyanosis. No clubbing. No edema. No calf tenderness. SKIN: Warm and dry. Normal capillary refill. No rashes. No jaundice. NEUROLOGICAL: Alert, awake, appropriate. Cranial nerves 2-12 intact. No deficits to light touch and temperature in face, upper extremities and lower extremities. No motor deficits in the in face, upper extremities and lower extremities. PSYCHIATRIC: Cooperative. Good eye contact. Appropriate mood and affect. <Danna Loredo - Last Filed: 05/01/18 20:00> - Vital Signs Last Vital Signs Temp Pulse Resp BP Pulse Ox 98.6 F 100 H 18 102/73 100 05/01/18 19:01 05/01/18 19:01 05/01/18 19:01 05/01/18 19:01 05/01/18 19:01 <Nela Toribio - Last Filed: 05/01/18 22:30> ED Treatment Course - LABORATORY CBC & Chemistry Diagram: 05/01/18 20:18 05/01/18 20:18 <Nela Toribio - Last Filed: 05/01/18 22:30> Medical Decision Making - Medical Decision Making 05/01/18 19:51 23-year-old female 4 para 3 presents with hyperemesis. LMP was 2007 and She denies fever, chills or diarrhea. She has complained of generalized abdominal discomfort and has no rebound or guarding on exam. Patient does not have complaint of pelvic cramping or vaginal bleeding. Impression hyperemesis gravidarum.,UTI Plan IV fluids, antiemetics, and a pelvic ultrasound 05/01/18 22:14 Patient's labs shows a normal CBC and essentially unremarkable. Chemistries are normal. Electrolytes Urinalysis reveals a urinary tract infection and she'll be started on Keflex 05/01/18 22:23 Patient denies any pelvic cramping or vaginal bleeding. She is here for persistent vomiting. Patient was informed she has a urinary tract infection and antibiotics were sent to her pharmacy Plan patient does have an appointment with [facility] at [address] [place] [address] this Tuesday <Nela Toribio - Last Filed: 05/01/18 22:30> *DC/Admit/Observation/Transfer - Attestations Scribe Attestion: 05/01/18 20:03 Documentation prepared by Danna Loredo, acting as medical corps officer for Nela Toribio MD. <Danna Loredo - Last Filed: 05/01/18 20:00> <Nela Toribio - Last Filed: 05/01/18 22:30> Diagnosis at time of Disposition: Hyperemesis gravidarum Urinary tract infection Qualifiers: Urinary tract infection type: site unspecified Hematuria presence: without hematuria Qualified Code(s): N39.0 - Urinary tract infection, site not specified - Discharge Dispostion Disposition: HOME Condition at time of disposition: Stable - Prescriptions Prescriptions: Cephalexin Monohydrate [Keflex -] 500 mg PO BID #20 capsule Ondansetron [Zofran Odt -] 4 mg SL TID PRN #21 od.tablet PRN Reason: Nausea And/Or Vomiting - Patient Instructions Printed Discharge Instructions: DI for Hyperemesis Gravidarum, DI for Urinary Tract Infection (UTI) Additional Instructions: PLEASE ART DISPLAY MAKER YOUR MEDICATIONS AT YOUR PHARMACY IT IS VERY IMPORTANT TO KEEP YOUR APPOINTMENT WITH YOUR [facility] THIS WEEK RETURN FOR ANY WORSENING SYMPTOMS
[2018-05-01] MEDS ORDERED: ONDANSETRON 4 MG/2 ML VIAL ONE ×2 (20:07→22:05)
[2018-05-01 20:37] LABS: BASO % 0.5 % (0-2.0); EOS % 0.3 % (0-4.5); HEMATOCRIT 38.7 % (32.4-45.2); HEMOGLOBIN 12.8 GM/dL (10.7-15.3); MCH 29.2 pg (25.7-33.7); MEAN CELL VOLUME 88.4 fl (80-96); MEAN PLT VOLUME 10.6 fl (7.5-11.1); NEUT % 63.2 % (42.8-82.8); PLATELET COUNT 211 K/MM3 (134-434); RBC 4.38 M/mm3 (3.60-5.2); RDW 15.5 % (11.6-15.6); WHITE BLOOD COUNT 4.6 K/mm3 (4.0-10.0)
[2018-05-01 20:47] LABS: URINE APPEARANCE SLCLOUDY; URINE BILIRUBIN NEGATIVE (<2.0 mg/dL); URINE COLOR YELLOW; URINE GLUCOSE (UA) NEGATIVE (NEGATIVE); URINE KETONE NEGATIVE (NEGATIVE); URINE LEUK ESTERASE 1+ (NEGATIVE); URINE NITRITE POSITIVE (NEGATIVE); URINE PROTEIN NEGATIVE (NEGATIVE); URINE UROBILINOGEN NEGATIVE mg/dL (0.2-1.0)
[2018-05-01 20:55] LABS: EPI CELLS RARE /HPF (FEW); URINE BACTERIA RARE /hpf (NONE SEEN); URINE MUCUS RARE
[2018-05-01 21:07] LABS: ALBUMIN 3.6 g/dl (3.4-5.0); ALK PHOS 79 U/L (45-117); ANION GAP 5 MMOL/L (8-16); BILIRUBIN,TOTAL 0.3 mg/dL (0.2-1); BLOOD UREA NITROGEN 9 mg/dL (7-18); CALCIUM 9.3 mg/dL (8.5-10.1); CHLORIDE 105 mmol/L (98-107); CO2 27 mmol/L (21-32); CREATININE 0.5 mg/dL (0.55-1.3); GLUCOSE,RANDOM 82 mg/dL (74-106); LIPASE 144 U/L (73-393); POTASSIUM 3.5 mmol/L (3.5-5.1); SGOT/AST 16 U/L (15-37); SGPT/ALT 19 U/L (13-61); SODIUM 136 mmol/L (136-145); TOT PROT 7.9 g/dl (6.4-8.2)
[2018-05-01] MEDS ORDERED: ONDANSETRON 4 MG/2 ML VIAL IVPUSH ONE (22:04)
[2018-05-01] MEDS ORDERED: CEPHALEXIN MONOHYDRATE 500 MG CAPSULE (UD) PO STA (22:08)
[2018-05-01] MEDS ORDERED: CEPHALEXIN MONOHYDRATE 500 MG CAPSULE (UD) ONE (22:10)
[2018-05-01 22:38] VITALS: BP 118/72; PULSE 82
== END 2018-05-01 22:38 | disposition home or self-care (01) ==
LOC: JER 18:58
PROC: 3E033GC Introduction of Other Therapeutic Substance into Peripheral Vein, Percutaneous Approach (ICD-10-PCS; principal; 2018-05-01)
DX: O26.891 Other specified pregnancy related conditions, first trimester (principal); O21.0 Mild hyperemesis gravidarum; O23.41 Unspecified infection of urinary tract in pregnancy, first trimester; Z3A.01 Less than 8 weeks gestation of pregnancy
CPT/HCPCS: 36415; 80053; 81003; 81015; 83690; 84702; 85025; 96374; 96376; 99283-25; J7030

== ENCOUNTER 2018-10-04 10:20 | Emergency (ER) | payer OTHER ==
[2018-10-04 10:29] VITALS: BMI 24.9
--- NOTE | 2018-10-04 11:23 | PDOC ---
History of Present Illness - General History Source: Patient Exam Limitations: No Limitations - History of Present Illness Initial Comments: 10/04/18 11:34 The patient is a 23-year-old female, (one , one stillborn), with no past medical history, who presents to the ED with 3 weeks of shortness of breath and recent onset of abdominal cramping, pleuritic chest pain and lower extremity cramping earlier this week. She states she went to her seed expert this morning who referred her to her PCP who then referred the patient to the ED. The patient states she has been experiencing the shortness of breath which is exacerbated with standing for about 3 weeks. She states her job gave her a few days off because they "noticed" the patient to be "having a difficult . " The patient reports a centralized, localized chest pain with deep inspirations. The patient denies chest pain at rest. The patient states she has been experiencing some mild, intermittent abdominal cramping, but denies any vaginal bleeding or discharge. The patient reports intermittent lower extremity cramping bilaterally. The patient also states she feels her abdomen is larger at this stage of than it was for her other pregnancies. The patient denies any fever, chills, cough, diarrhea, or constipation. She denies any frequency, urgency, hesitancy, dysuria, or hematuria. She denies any recent travels. She denies a Hx of blood clots. She denies any recent illnesses or sick contacts. Allergies: NKDA Surgical History: None reported. Social History: None reported. Architectural Project Captain: Yumi León CNM <Gina Case - Last Filed: 10/04/18 13:21> <Joel King - Last Filed: 10/04/18 14:44> - General Chief Complaint: Shortness of Breath Stated Complaint: SOB Time Seen by Provider: 10/04/18 10:45 Past History <Gina Case - Last Filed: 10/04/18 13:21> - Past Medical History Asthma: No Cancer: No Cardiac Disorders: No COPD: No CHF: No Diabetes: No HTN: No Seizures: No Thyroid Disease: No - Reproductive History (#): 3 Para: 2 Therapeutic (s) & number: No Spontaneous : 0 - Suicide/Smoking/Psychosocial Hx Smoking History: Never smoked Have you smoked in the past 12 months: No Hx Alcohol Use: No Drug/Substance Use Hx: No Substance Use Type: None Hx Substance Use Treatment: No <Joel King - Last Filed: 10/04/18 14:44> - Past Medical History Allergies/Adverse Reactions: Allergies Allergy/AdvReac Type Severity Reaction Status Date / Time No Known Allergies Allergy Verified 10/04/18 10:25 Home Medications: Ambulatory Orders No122/Iron/Folic Acid [ Multi Tablet] 1 each PO DAILY 10/04/18 Review of Systems - Review of Systems Able to Perform ROS?: Yes Comments:: 10/04/18 11:41 CONSTITUTIONAL: No fever, no chills, no fatigue EYES: No visual changes ENT: No ear pain, no sore throat CARDIOVASCULAR: (+) pleuritic chest pain, no palpitations RESPIRATORY: (+) SOB, No cough GI:(+) abdominal cramping, no nausea, no vomiting, no constipation, no diarrhea GENITOURINARY: No dysuria, no frequency, no hematuria MUSKULOSKELETAL: (+) lower extremity cramping. No backpain, no joint pain, SKIN: No rash NEURO: No headache <Gina Case - Last Filed: 10/04/18 13:21> *Physical Exam - Vital Signs Last Vital Signs Temp Pulse Resp BP Pulse Ox 97.9 F 98 H 20 111/68 100 10/04/18 10:25 10/04/18 10:25 10/04/18 10:25 10/04/18 10:25 10/04/18 10:25 - Physical Exam Comments: 10/04/18 11:42 CONSTITUTIONAL: Well-appearing; well-nourished; in no apparent distress HEAD: Normocephalic; atraumatic EYES: PERRL; EOM intact ENMT: External appears normal; normal oropharynx NECK: Supple; non-tender; no cervical lymphadenopathy CARD: Normal S1, S2; no murmurs, rubs, or gallops RESP:(+) Tachypneic, dyspneic. Normal chest excursion; breath sounds clear and equal bilaterally; no wheezes, rhonchi, or rales ABD: (+) Gravid with fundus palpable about 5cm above the umbilicus. Soft, non- distended; non-tender; no palpable organomegaly, no palpable hernias EXT: Normal ROM in all four extremities; non-tender to palpation; distal pulses intact SKIN: Warm, dry, no rash NEURO: No focal neurological deficiencies. <Gina Case - Last Filed: 10/04/18 13:21> - Vital Signs Last Vital Signs Temp Pulse Resp BP Pulse Ox 97.9 F 98 H 20 111/68 100 10/04/18 10:25 10/04/18 10:25 10/04/18 10:25 10/04/18 10:25 10/04/18 10:25 <Joel King - Last Filed: 10/04/18 14:44> Moderate Sedation - Procedure Monitoring Vital Signs: Procedure Monitoring Vital Signs Temperature 97.9 F 10/04/18 10:25 Pulse Rate 98 H 10/04/18 10:25 Respiratory Rate 20 10/04/18 10:25 Blood Pressure 111/68 10/04/18 10:25 O2 Sat by Pulse Oximetry (%) 100 10/04/18 10:25 <Gina Case - Last Filed: 10/04/18 13:21> - Procedure Monitoring Vital Signs: Procedure Monitoring Vital Signs Temperature 97.9 F 10/04/18 10:25 Pulse Rate 98 H 10/04/18 10:25 Respiratory Rate 20 10/04/18 10:25 Blood Pressure 111/68 10/04/18 10:25 O2 Sat by Pulse Oximetry (%) 100 10/04/18 10:25 <Joel King - Last Filed: 10/04/18 14:44> Heart Score/ECG Review - [place] Comment: 10/04/18 12:03 EKG was read by Dr. Kign at 11:52 Impression: Sinus tachycardia with short W[place], low voltage QRS, Cannot rule out inferior infarct of undetermined age Vent Rate: 110 bpm WV Interval: 94 ms QTc: 470 ms <Gina Case - Last Filed: 10/04/18 13:21> ED Treatment Course - LABORATORY CBC & Chemistry Diagram: 10/04/18 11:40 10/04/18 11:40 <Gina Case - Last Filed: 10/04/18 13:21> - LABORATORY CBC & Chemistry Diagram: 10/04/18 11:40 10/04/18 11:40 <Joel King - Last Filed: 10/04/18 14:44> Medical Decision Making - Medical Decision Making 10/04/18 12:41 Patient is a 23-year-old female 6 para 3, 29 weeks gestation by LMP who presents with 3 weeks of persistent shortness of breath, numerous episodes of syncope. Patient reports that her shortness of breath associated with pleuritic substernal chest discomfort. She also complains of bilateral atraumatic leg cramping but denies previous history of DVT or PE. In the ER, patient is noted to be awake and alert, tachypneic and dyspneic as well as mildly tachycardic. Oxygen saturation room air is noted to be 100%. Lungs are clear and patient did not improve after administration of Combivent nebulizer. EKG shows no evidence of acute ischemia or right sided heart strain. Differential diagnoses includes PE versus symptomatic anemia versus peripartum cardiomyopathy. We'll obtain CBC/CMP/d-dimer. Will obtain bilateral lower extremity Doppler ultrasound. Will evaluate for well-being. Will consider CTA versus VQ scan and d-dimer is noted to be significantly elevated. 10/04/18 14:41 Patient resting comfortably. Oxygen saturation remains at 100% on room air. Patient remains mildly tachycardic. Bilateral Doppler ultrasound shows no evidence of DVT. D-dimer is noted to be significantly elevated. I discussed the case with Dr. Wells of [facility] and consulted radiology regarding the best possible study at this time. CTA provides less radiation to the fetus and I have discussed that with the patient and her fianc who is at bedside. They both have expressed desire not to undergo the CT at this time. They expressed understanding and undiagnosed PE may cause harm to the patient and her fetus. Patient also refused packed cell transfusion at this time and will follow-up with [facility] promptly. Will sign out AMA. <Joel King - Last Filed: 10/04/18 14:44> *DC/Admit/Observation/Transfer <Gina Case - Last Filed: 10/04/18 13:21> - Attestations Physician Attestion: 10/04/18 12:41 The documentation was prepared by the scribe under my direct supervision. I have reviewed the documentation which correctly represents the findings, medical decision-making and critical action taken by me. <Joel King - Last Filed: 10/04/18 14:44> Diagnosis at time of Disposition: Qualifiers: Weeks of gestation: 29 weeks Qualified Code(s): Z3A.29 - 29 weeks gestation of - Discharge Dispostion Disposition: AGAINST MEDICAL ADVICE Condition at time of disposition: Fair - Referrals Referrals: Concepción Wells MD [Staff Physician] - - Patient Instructions Printed Discharge Instructions: DI for Shortness of Breath Additional Instructions: You presented with shortness of breath. It may be caused by a blood clot in the lungs and or severe anemia which is low red cell count in the blood. You've refused a CAT scan to evaluate for the blood clot and did not wish to receive blood transfusion at this time. Uric risk of harm to self and the fetus. Follow- up with [facility] promptly and return immediately for worsening symptoms. - Post Discharge Activity Forms/Work/School Notes: Back to Work
[2018-10-04] MEDS ORDERED: ALBUTEROL SO4 2.5/IPRATROPIUM 0.5 INH SOL 3 ML VIAL.NEB. NEB ONE ×2 (11:35→11:44)
[2018-10-04 12:07] LABS: BASO % 0.3 % (0-2.0); EOS % 0.3 % (0-4.5); HEMATOCRIT 24.9 % (32.4-45.2); HEMOGLOBIN 8.2 GM/dL (10.7-15.3); LYMPH % 17.1 % (8-40); MCH 24.5 pg (25.7-33.7); MCHC 32.9 g/dl (32.0-36.0); MEAN CELL VOLUME 74.5 fl (80-96); MEAN PLT VOLUME 8.7 fl (7.5-11.1); MONO % 5.9 % (3.8-10.2); NEUT % 76.4 % (42.8-82.8); PLATELET COUNT 250 K/MM3 (134-434); RBC 3.34 M/mm3 (3.60-5.2); RDW 17.1 % (11.6-15.6)
[2018-10-04 12:10] LABS: URINE APPEARANCE CLOUDY; URINE BILIRUBIN NEGATIVE (<2.0 mg/dL); URINE COLOR YELLOW; URINE GLUCOSE (UA) NEGATIVE (NEGATIVE); URINE KETONE NEGATIVE (NEGATIVE); URINE LEUK ESTERASE 1+ (NEGATIVE); URINE NITRITE NEGATIVE (NEGATIVE); URINE PROTEIN NEGATIVE (NEGATIVE)
[2018-10-04 12:12] LABS: EPI CELLS MODERATE /HPF (FEW); URINE BACTERIA RARE /hpf (NONE SEEN); URINE MUCUS RARE
[2018-10-04 12:46] LABS: ALBUMIN 2.5 g/dl (3.4-5.0); ALK PHOS 104 U/L (45-117); ANION GAP 7 MMOL/L (8-16); BILIRUBIN,TOTAL 0.3 mg/dL (0.2-1); BLOOD UREA NITROGEN 6 mg/dL (7-18); CALCIUM 8.1 mg/dL (8.5-10.1); CHLORIDE 109 mmol/L (98-107); CO2 22 mmol/L (21-32); CREATININE 0.2 mg/dL (0.55-1.3); GLUCOSE,RANDOM 70 mg/dL (74-106); MAGNESIUM 1.8 mg/dL (1.8-2.4); POTASSIUM 3.7 mmol/L (3.5-5.1); SGOT/AST 16 U/L (15-37); SGPT/ALT 13 U/L (13-61); SODIUM 137 mmol/L (136-145); TOT PROT 6.4 g/dl (6.4-8.2)
[2018-10-04 14:49] VITALS: BP 123/76; PULSE 98; TEMP 98.9
--- NOTE | 2018-10-05 10:53 | EKG ---
Test Reason : Blood Pressure : / mmHG Vent. Rate : 110 BPM Atrial Rate : 110 BPM P-R Int : 094 ms QRS Dur : 084 ms QT Int : 348 ms P-R-T Axes : 000 010 027 degrees QTc Int : 470 ms POOR DATA QUALITY, INTERPRETATION MAY BE ADVERSELY AFFECTED SINUS TACHYCARDIA WITH SHORT RI LOW VOLTAGE QRS CANNOT RULE OUT INFERIOR INFARCT , AGE UNDETERMINED ABNORMAL ECG WHEN COMPARED WITH ECG OF 01-FEB-2018 11:15, QUESTIONABLE CHANGE IN QRS AXIS ST NO LONGER DEPRESSED IN INFERIOR LEADS Confirmed by LOUISE ZAPIEN MD ([id number]) on 10/05/2018 10:53:33 AM Referred By: Confirmed By:LOUISE ZAPIEN MD
== END 2018-10-04 14:49 | disposition left against medical advice (07) ==
LOC: JER 10:20
PROC: 3E0F7GC Introduction of Other Therapeutic Substance into Respiratory Tract, Via Natural or Artificial Opening (ICD-10-PCS; principal; 2018-10-04)
DX: O26.893 Other specified pregnancy related conditions, third trimester (principal); Z3A.29 29 weeks gestation of pregnancy
CPT/HCPCS: 36415; 76816-TC; 80053; 81003; 81015; 83735; 85025; 85379; 87077; 87086; 93005; 93010; 93970-TC; 99283-25

== ENCOUNTER 2018-12-12 08:07 | Inpatient (IN) | payer OTHER | END 2018-12-14 11:00 | disposition home or self-care (01) | LOC: JLDR 08:07 → J3W 11:04 ==

== ENCOUNTER 2019-01-11 08:46 | Emergency (ER) | payer OTHER ==
[2019-01-11 09:01] VITALS: BP 115/71; TEMP 98.7; BMI 24.2
[2019-01-11] MEDS ORDERED: IBUPROFEN 400 MG TABLET (FP) PO ONE ×2 (09:52→10:04)
--- NOTE | 2019-01-11 09:55 | PDOC ---
History of Present Illness - General Chief Complaint: Abscess Boil Stated Complaint: BUTTOCK ABSCESS Time Seen by Provider: 01/11/19 09:43 History Source: Patient (right buttock abscess) Past History - Travel Traveled outside of the country in the last 30 days: No Close contact w/someone who was outside of country & ill: No - Past Medical History Allergies/Adverse Reactions: Allergies Allergy/AdvReac Type Severity Reaction Status Date / Time No Known Allergies Allergy Verified 01/11/19 08:58 Home Medications: Ambulatory Orders No122/Iron/Folic Acid [ Multi Tablet] 1 each PO DAILY 10/04/18 Ferrous Sulfate [Feosol] 325 mg PO DAILY #30 tablet 12/14/18 Ibuprofen 600 mg PO Q6H PRN #30 tablet 12/14/18 Cephalexin Monohydrate [Keflex -] 500 mg PO BID 7 Days #14 capsule 01/11/19 Ibuprofen 800 mg PO ACDIN 7 Days #20 tablet 01/11/19 Asthma: No Cancer: No Cardiac Disorders: No COPD: No CHF: No Diabetes: No HTN: No Seizures: No Thyroid Disease: No - Reproductive History (#): 3 Para: 2 Therapeutic (s) & number: No Spontaneous : 0 - Suicide/Smoking/Psychosocial Hx Smoking History: Never smoked Have you smoked in the past 12 months: No Information on smoking cessation initiated: No Hx Alcohol Use: No Drug/Substance Use Hx: No Substance Use Type: None Hx Substance Use Treatment: No Review of Systems - Review of Systems Constitutional: No: Chills, Fever Integumentary: Yes: Erythema, Lumps. No: Bruising, Lesions, Pruritus, Rash *Physical Exam - Vital Signs Last Vital Signs Temp Pulse Resp BP Pulse Ox 98.7 F 112 H 18 115/71 99 01/11/19 08:59 01/11/19 08:59 01/11/19 08:59 01/11/19 08:59 01/11/19 08:59 - Physical Exam General Appearance: Yes: Nourished Respiratory/Chest: positive: Lungs Clear, Normal Breath Sounds Cardiovascular: positive: Regular Rhythm, Regular Rate, S1, S2 Integumentary: positive: Erythema, Swelling (kacey sized area of induration with surrounding erythema, no fluctance in Right buttocks) Neurologic: positive: crime lab technician II-XII NML intact, Fully Oriented, Alert, Normal Mood/ Affect, Normal Response, Motor Strength 11/26 Medical Decision Making - Medical Decision Making 01/11/19 09:53 Right buttock abscess X 2 days UTD with vaccine indurated area, mildly oozing, no fluctuate wound probed with qtip, cx sent no drainage warm compresses advised abx pt tachycardiac, rpt 110, denies palpitation, CP reports her HR is chronically high, she has been seen by retail sales manager and workup is neg *DC/Admit/Observation/Transfer Diagnosis at time of Disposition: Abscess - Discharge Dispostion Disposition: HOME Condition at time of disposition: Stable - Prescriptions Prescriptions: Cephalexin Monohydrate [Keflex -] 500 mg PO BID 7 Days #14 capsule Ibuprofen 800 mg PO ACDIN 7 Days #20 tablet - Referrals - Patient Instructions Printed Discharge Instructions: DI for Skin Abscess Additional Instructions: apply warm compress to area take antibiotics as prescribed return to the ER if symptoms worsening - Post Discharge Activity
[2019-01-11 10:30] VITALS: PULSE 110
== END 2019-01-11 10:30 | disposition home or self-care (01) ==
LOC: JERFT 08:46
DX: L02.31 Cutaneous abscess of buttock (principal)
CPT/HCPCS: 87070; 87205; 99281-25